=== PATIENT | female | born 1945 | race Caucasian/White ===

== ENCOUNTER 2020-01-30 04:04 | Emergency (ER) | payer MEDICARE ==
[~2020-01-30] VITALS: Ht 157.5 cm; Wt 65.0 kg
[2020-01-30] MEDS ORDERED: PLEASE ENTER ALLERGIES MC SCH (04:30)
[2020-01-30] MEDS ORDERED: METHOCARBAMOL 1,000 MG in DEXTROSE 5% 100 ML IV ONE (04:30)
[2020-01-30] MEDS ORDERED: KETOROLAC 30 MG/1 ML IVPush ONE (04:30)
[2020-01-30] MEDS ORDERED: KETOROLAC 30 MG/1 ML ONE (04:32)
--- NOTE | 2020-01-30 05:19 | NUR ---
Pt states that she con't to have mild muscle spasms after medication and ice. Pt is resting at this time. VSS.
[2020-01-30 06:06] VITALS: BP 117/62
== END 2020-01-30 06:16 | disposition home or self-care (01) ==
LOC: ED 05:30
DX: M62.838 Other muscle spasm (principal)
CPT/HCPCS: 96365; 96375; 99284; J1885; J2800